=== PATIENT | female | born 1945 | race Caucasian/White ===

== ENCOUNTER → 2017-04-13 | Outpatient (CLI) | payer MEDICARE ==
--- NOTE | 2017-04-13 12:28 | REP ---
Bilateral carotid artery duplex ultrasound: Peak flow velocity analysis: RIGHT LEFT ICA. Peak flow velocity cm/sec 50 36 ICA Diastolic flow velocity cm/sec 15 12 ICA/CCA Ratio 0.50 0.68 There is shallow atheromatous plaque in the common carotid arteries extending into the bulbs and into the internal carotid arteries and external carotid arteries bilaterally. The plaque becomes focally and slightly thicker at the origins of the right and left internal carotid arteries bilaterally. However, the peak flow velocities are normal bilaterally. The findings indicate less than 50% narrowing bilaterally. There is no significant stenosis on the right or the left. There is antegrade flow in the left vertebral artery. The right vertebral artery could not be visualized. Impression: Less than 50% narrowing bilaterally. There is no significant stenosis on the right on the left. Antegrade flow in the left vertebral artery. The right vertebral artery could not be visualized. Signed by Varinder Hinkle MD 04/13/2017 12:20 P
--- NOTE | 2017-04-13 13:38 | REP ---
Thyroid sonography: History: Dizziness. Enlarged lymph nodes. Findings: Scanning through the palpable area in the left submandibular region demonstrates a normal size lymph node measuring 0.5 x 0.3 x 0.5 cm just above the submandibular gland. It has an echogenic fatty hilar architecture and a benign appearance. Submandibular gland appears homogeneous. Impression: No significant finding. Signed by Alfred Dow MD 04/13/2017 04:33 P
== END ==
LOC: M RAD 11:04
PROVIDERS: ATTEND Physician Assistant
DX: R42 Dizziness and giddiness (principal); R59.0 Localized enlarged lymph nodes

== ENCOUNTER → 2017-05-13 | Outpatient (REF) | payer MEDICARE ==
[2017-05-13 20:08] LABS: CALCIUM LEVEL 9.1 MG/DL (8.8-10.2); CREATININE FOR GFR 1.1 MG/DL (0.55-1.02); POTASSIUM SERUM 4.5 MEQ/L (3.5-5.1)
== END ==
LOC: M LAB REF 17:59
PROVIDERS: ATTEND Nurse Practitioner Family
DX: I11.0 Hypertensive heart disease with heart failure (principal)
CPT/HCPCS: 80048; G0463

== ENCOUNTER → 2017-05-24 | Outpatient (CLI) | payer MEDICARE ==
--- NOTE | 2017-05-24 14:22 | REP ---
MR BRAIN WITHOUT AND WITH CONTRAST: HISTORY: Tinnitus. CONTRAST: ProHance 7 mL. Areas of increased signal intensity on T2-weighted images are present in the periventricular and subcortical white matter. This represents small vessel ischemic disease. There is no intraparenchymal hemorrhage, infarct, mass, or midline shift. There is no abnormal enhancement. The ventricular system is normal in appearance. The cortical sulci and subarachnoid space in the posterior fossa are dilated, consistent with minimal volume loss. There is no cerebellopontine angle mass. The inner ear structures are normal in appearance. Minimal mucosal thickening is present in the mastoid air cells. The sinuses are clear. IMPRESSION: 1. Small vessel ischemic disease. 2. Minimal volume loss. Signed by Stephan Johnson MD 05/24/2017 02:24 P
== END ==
LOC: M RAD 12:17
PROVIDERS: ATTEND Physician Assistant
DX: M54.2 Cervicalgia (principal); R42 Dizziness and giddiness; H93.13 Tinnitus, bilateral; H92.02 Otalgia, left ear
CPT/HCPCS: 70553; A9576

== ENCOUNTER → 2017-11-29 | Outpatient (REF) | payer MEDICARE ==
[2017-11-29 18:30] LABS: BASO % 0.6 % (0.0-1.0); EOS # 0.1 10^3/uL (0.0-0.50); EOS % 2.9 % (0.0-3.0); HEMATOCRIT 41.1 % (36.0-47.0); HEMOGLOBIN 13.6 g/dl (12.0-16.0); IMMATURE GRANULOCYTE % 0.4 % (0-3.0); MEAN CORPUSCULAR HEMOGLOBIN 31.3 pg (27.0-33.0); MEAN CORPUSCULAR HGB CONC 33.1 g/dl (32.0-36.5); MEAN CORPUSCULAR VOLUME 94.7 fl (80.0-96.0); MONO # 0.6 10^3/uL (0.0-0.8); MONO % 12.6 % (0.0-5.0); NEUTROPHILS % 62.5 % (36.0-66.0); PLATELET COUNT, AUTOMATED 123 10^3/uL (150-450); RED BLOOD COUNT 4.34 10^6/uL (4.00-5.40); WHITE BLOOD COUNT 4.8 10^3/uL (4.0-10.0)
[2017-11-29 19:14] LABS: ALBUMIN 3.7 GM/DL (3.2-5.2); ALBUMIN/GLOBULIN RATIO 1.37 (1.00-1.93); ALKALINE PHOSPHATASE 81 U/L (45-117); ALT/SGPT 28 U/L (12-78); ANION GAP 6 MEQ/L (8-16); AST/SGOT 20 U/L (7-37); BILIRUBIN,TOTAL 0.4 MG/DL (0.2-1.0); BLOOD UREA NITROGEN 23 MG/DL (7-18); CALCIUM LEVEL 8.6 MG/DL (8.8-10.2); CARBON DIOXIDE LEVEL 28 MEQ/L (21-32); CHLORIDE LEVEL 108 MEQ/L (98-107); CHOLESTEROL LEVEL 150 MG/DL (<200); CHOLESTEROL RISK RATIO 3.125 (<5); CREATININE FOR GFR 1.02 MG/DL (0.55-1.30); FREE T4 1.41 NG/DL (0.76-1.46); GLOMERULAR FILTRATION RATE 56.6 (>39); GLUCOSE, FASTING 101 MG/DL (70-100); HDL CHOLESTEROL 48 MG/DL (>40); LDL CHOLESTEROL 78.8 MG/DL (<100); NON-HDL-C 102 MG/DL; POTASSIUM SERUM 4.6 MEQ/L (3.5-5.1); SODIUM LEVEL 142 MEQ/L (136-145); THYROID STIMULATING HORMONE 0.889 uIU/ML (0.358-3.740); TOTAL PROTEIN 6.4 GM/DL (6.4-8.2); TRIGLYCERIDES LEVEL 116 MG/DL (<150)
== END ==
LOC: M SFHCCAPE 09:26
DX: E78.5 Hyperlipidemia, unspecified (principal); E03.9 Hypothyroidism, unspecified
CPT/HCPCS: 84443

== ENCOUNTER → 2017-12-06 | Outpatient (REF) | payer MEDICARE ==
[2017-12-06 16:48] LABS: URIC ACID 6.8 MG/DL (2.6-6.0)
== END ==
LOC: M SFHCCAPE 16:15
DX: M25.542 Pain in joints of left hand (principal)
CPT/HCPCS: 84550

== ENCOUNTER → 2017-12-14 | Outpatient (CLI) | payer MEDICARE ==
[2017-12-14 11:57] LABS: COLLAGEN EPINEPHRINE 194 SECONDS (74-162)
[2017-12-14 12:19] LABS: COLLAGEN ADP 100 SECONDS (56-103)
== END ==
LOC: M LAB 11:14
DX: H02.423 Myogenic ptosis of bilateral eyelids (principal)
CPT/HCPCS: 36415

== ENCOUNTER → 2017-12-21 | Outpatient (REF) | payer MEDICARE ==
[2017-12-24 00:08] LABS: ANTINUCLEAR ANTIBODIES DIRECT Negative (Negative); Lyme Disease IgG/IgM Antibodie <0.91 ISR (0.00-0.90); Lyme Disease IgM Ab Quantitati <0.80 index (0.00-0.79)
[2017-12-24 00:08] LABS: CYCLIC CITRULLINATED PEPTIDE > 250 units (0-19)
== END ==
LOC: M SFHCCAPE 10:26
DX: Z01.818 Encounter for other preprocedural examination (principal); M79.642 Pain in left hand; M79.641 Pain in right hand; M25.649 Stiffness of unspecified hand, not elsewhere classified; E79.0 Hyperuricemia without signs of inflammatory arthritis and tophaceous disease
CPT/HCPCS: 86038

== ENCOUNTER → 2018-04-07 | Outpatient (REF) | payer MEDICARE ==
[2018-04-07 16:50] LABS: BASO % 0.5 % (0.0-1.0); EOS # 0.1 10^3/uL (0.0-0.50); EOS % 1.8 % (0.0-3.0); HEMATOCRIT 40.2 % (36.0-47.0); HEMOGLOBIN 13.5 g/dl (12.0-15.5); IMMATURE GRANULOCYTE % 0.3 % (0-3.0); LYMPH # 1.2 10^3/uL (1.5-4.5); LYMPH % 19.6 % (24.0-44.0); MEAN CORPUSCULAR HEMOGLOBIN 31.5 pg (27.0-33.0); MEAN CORPUSCULAR HGB CONC 33.6 g/dl (32.0-36.5); MEAN CORPUSCULAR VOLUME 93.7 fl (80.0-96.0); MONO # 0.6 10^3/uL (0.0-0.8); MONO % 9.6 % (0.0-5.0); NEUTROPHILS # 4.3 10^3/uL (1.8-7.7); NEUTROPHILS % 68.2 % (36.0-66.0); PLATELET COUNT, AUTOMATED 133 10^3/uL (150-450); RED BLOOD COUNT 4.29 10^6/uL (4.00-5.40); RED CELL DISTRIBUTION WIDTH 11.8 % (11.5-14.5); WHITE BLOOD COUNT 6.3 10^3/uL (4.0-10.0)
[2018-04-07 17:13] LABS: ESTIMATED AVERAGE GLUCOSE 123 MG/DL (60-110); HEMOGLOBIN A1c 5.9 %
[2018-04-07 17:32] LABS: ALBUMIN 3.5 GM/DL (3.2-5.2); ALBUMIN/GLOBULIN RATIO 1.21 (1.00-1.93); ALKALINE PHOSPHATASE 82 U/L (45-117); ALT/SGPT 20 U/L (12-78); ANION GAP 10 MEQ/L (8-16); AST/SGOT 14 U/L (7-37); BILIRUBIN,TOTAL 0.5 MG/DL (0.2-1.0); BLOOD UREA NITROGEN 21 MG/DL (7-18); C REACTIVE PROTEIN QUANTITATIV < 0.30 MG/DL (0.00-0.30); CALCIUM LEVEL 9.3 MG/DL (8.8-10.2); CARBON DIOXIDE LEVEL 23 MEQ/L (21-32); CHLORIDE LEVEL 107 MEQ/L (98-107); CREATININE FOR GFR 1.01 MG/DL (0.55-1.30); FREE T4 1.35 NG/DL (0.76-1.46); GLOMERULAR FILTRATION RATE 57.2 (>39); GLUCOSE, FASTING 102 MG/DL (70-100); POTASSIUM SERUM 4.9 MEQ/L (3.5-5.1); SODIUM LEVEL 140 MEQ/L (136-145); TOTAL PROTEIN 6.4 GM/DL (6.4-8.2); URIC ACID 6.5 MG/DL (2.6-6.0)
[2018-04-07 21:42] LABS: ERYTHROCYTE SEDIMENTATION RATE 7 mm/hr (0-30)
== END ==
LOC: M SFHCCAPE 10:00
DX: D69.6 Thrombocytopenia, unspecified (principal); E03.9 Hypothyroidism, unspecified; R73.01 Impaired fasting glucose; M25.542 Pain in joints of left hand; M05.742 Rheumatoid arthritis with rheumatoid factor of left hand without organ or systems involvement
CPT/HCPCS: 84443

== ENCOUNTER → 2018-05-19 | Outpatient (CLI) | payer MEDICARE | LOC: M LRY 09:10 | DX: M05.79 Rheumatoid arthritis with rheumatoid factor of multiple sites without organ or systems involvement (principal); M25.762 Osteophyte, left knee; M17.0 Bilateral primary osteoarthritis of knee; M25.742 Osteophyte, left hand; M25.741 Osteophyte, right hand; M19.031 Primary osteoarthritis, right wrist; M19.032 Primary osteoarthritis, left wrist; M19.041 Primary osteoarthritis, right hand; M19.042 Primary osteoarthritis, left hand; Z29.8 Encounter for other specified prophylactic measures; Z79.899 Other long term (current) drug therapy | CPT/HCPCS: 73110; 80053 ==

== ENCOUNTER → 2018-05-19 | Outpatient (REF) | payer MEDICARE ==
[2018-05-19 11:38] LABS: BASO % 0.4 % (0.0-1.0); EOS # 0.1 10^3/uL (0.0-0.50); EOS % 1.4 % (0.0-3.0); HEMATOCRIT 41.6 % (36.0-47.0); HEMOGLOBIN 13.8 g/dl (12.0-15.5); IMMATURE GRANULOCYTE % 0.1 % (0-3.0); LYMPH # 1.3 10^3/uL (1.5-4.5); MEAN CORPUSCULAR HEMOGLOBIN 31.1 pg (27.0-33.0); MEAN CORPUSCULAR HGB CONC 33.2 g/dl (32.0-36.5); MEAN CORPUSCULAR VOLUME 93.7 fl (80.0-96.0); MONO # 0.6 10^3/uL (0.0-0.8); MONO % 8.5 % (0.0-5.0); NEUTROPHILS % 71.6 % (36.0-66.0); PLATELET COUNT, AUTOMATED 123 10^3/uL (150-450); RED BLOOD COUNT 4.44 10^6/uL (4.00-5.40); RED CELL DISTRIBUTION WIDTH 12.4 % (11.5-14.5); WHITE BLOOD COUNT 6.9 10^3/uL (4.0-10.0)
[2018-05-19 12:16] LABS: ALBUMIN 3.8 GM/DL (3.2-5.2); ALBUMIN/GLOBULIN RATIO 1.27 (1.00-1.93); ALKALINE PHOSPHATASE 86 U/L (45-117); ALT/SGPT 19 U/L (12-78); ANION GAP 4 MEQ/L (8-16); AST/SGOT 12 U/L (7-37); BILIRUBIN,TOTAL 0.4 MG/DL (0.2-1.0); BLOOD UREA NITROGEN 22 MG/DL (7-18); C REACTIVE PROTEIN QUANTITATIV < 0.30 MG/DL (0.00-0.30); CALCIUM LEVEL 8.9 MG/DL (8.8-10.2); CARBON DIOXIDE LEVEL 31 MEQ/L (21-32); CHLORIDE LEVEL 110 MEQ/L (98-107); GLOMERULAR FILTRATION RATE 57.9 (>39); GLUCOSE, FASTING 86 MG/DL (70-100); SODIUM LEVEL 145 MEQ/L (136-145); TOTAL PROTEIN 6.8 GM/DL (6.4-8.2)
[2018-05-19 12:22] LABS: ERYTHROCYTE SEDIMENTATION RATE 9 mm/hr (0-30)
[2018-05-19 12:30] LABS: TOTAL 25(OH) VITAMIN D 18.7 NG/ML (30.0-100.0)
[2018-05-20 09:32] LABS: HEPATITIS B SURFACE ANTIBODY NEGATIVE (POSITIVE)
[2018-05-20 09:38] LABS: HEPATITIS B SURFACE ANTIGEN NEGATIVE (NEGATIVE)
[2018-05-20 10:08] LABS: HEPATITIS C VIRUS ABY INDEX 0.1 INDEX (<0.8)
[2018-05-21 00:07] LABS: G6PD2 4.55 x10E6/uL (3.77-5.28); G6PD3 285 (146-376); HEPATITIS B CORE ANTIBODY IGG Negative (Negative)
== END ==
LOC: M SFHCLERA 08:46
DX: M05.79 Rheumatoid arthritis with rheumatoid factor of multiple sites without organ or systems involvement (principal); Z29.8 Encounter for other specified prophylactic measures; M15.8 Other polyosteoarthritis; Z79.899 Other long term (current) drug therapy
CPT/HCPCS: 80053

== ENCOUNTER → 2018-05-31 | Outpatient (REF) | payer MEDICARE | LOC: M SFHCCAPE 17:10 | DX: K13.79 Other lesions of oral mucosa (principal) | CPT/HCPCS: 87255 ==

== ENCOUNTER → 2018-06-08 | Outpatient (CLI) | payer MEDICARE | LOC: M WHC 13:57 | DX: Z29.8 Encounter for other specified prophylactic measures (principal); Z78.0 Asymptomatic menopausal state | CPT/HCPCS: 77080 ==

== ENCOUNTER → 2018-06-09 | Outpatient (REF) | payer MEDICARE ==
[2018-06-09 17:49] LABS: ALBUMIN 3.8 GM/DL (3.2-5.2); ALBUMIN/GLOBULIN RATIO 1.41 (1.00-1.93); ALKALINE PHOSPHATASE 80 U/L (45-117); ALT/SGPT 20 U/L (12-78); ANION GAP 7 MEQ/L (8-16); AST/SGOT 15 U/L (7-37); BILIRUBIN,TOTAL 0.4 MG/DL (0.2-1.0); BLOOD UREA NITROGEN 19 MG/DL (7-18); C REACTIVE PROTEIN QUANTITATIV < 0.30 MG/DL (0.00-0.30); CALCIUM LEVEL 9.1 MG/DL (8.8-10.2); CARBON DIOXIDE LEVEL 27 MEQ/L (21-32); CHLORIDE LEVEL 108 MEQ/L (98-107); CREATININE FOR GFR 0.97 MG/DL (0.55-1.30); GLOMERULAR FILTRATION RATE 59.9 (>39); GLUCOSE, FASTING 88 MG/DL (70-100); POTASSIUM SERUM 4.9 MEQ/L (3.5-5.1); SODIUM LEVEL 142 MEQ/L (136-145); TOTAL PROTEIN 6.5 GM/DL (6.4-8.2)
[2018-06-09 19:32] LABS: BASO % 0.8 % (0.0-1.0); EOS # 0.1 10^3/uL (0.0-0.50); EOS % 1.5 % (0.0-3.0); HEMATOCRIT 39.7 % (36.0-47.0); HEMOGLOBIN 12.9 g/dl (12.0-15.5); IMMATURE GRANULOCYTE % 0.4 % (0-3.0); LYMPH # 1.1 10^3/uL (1.5-4.5); LYMPH % 21.8 % (24.0-44.0); MEAN CORPUSCULAR HEMOGLOBIN 30.9 pg (27.0-33.0); MEAN CORPUSCULAR HGB CONC 32.5 g/dl (32.0-36.5); MEAN CORPUSCULAR VOLUME 95.2 fl (80.0-96.0); MONO # 0.5 10^3/uL (0.0-0.8); MONO % 9.6 % (0.0-5.0); NEUTROPHILS # 3.4 10^3/uL (1.8-7.7); NEUTROPHILS % 65.9 % (36.0-66.0); PLATELET COUNT, AUTOMATED 131 10^3/uL (150-450); RED BLOOD COUNT 4.17 10^6/uL (4.00-5.40); WHITE BLOOD COUNT 5.2 10^3/uL (4.0-10.0)
[2018-06-09 20:12] LABS: ERYTHROCYTE SEDIMENTATION RATE 9 mm/hr (0-30)
== END ==
LOC: M SFHCCAPE 11:26
DX: M05.79 Rheumatoid arthritis with rheumatoid factor of multiple sites without organ or systems involvement (principal)
CPT/HCPCS: 80053

== ENCOUNTER → 2018-07-28 | Outpatient (REF) | payer MEDICARE ==
[2018-07-28 19:39] LABS: BASO % 0.7 % (0.0-1.0); EOS # 0.1 10^3/uL (0.0-0.50); EOS % 1.8 % (0.0-3.0); HEMATOCRIT 42.5 % (36.0-47.0); HEMOGLOBIN 13.4 g/dl (12.0-15.5); IMMATURE GRANULOCYTE % 0.3 % (0-3.0); LYMPH # 1.2 10^3/uL (1.5-4.5); LYMPH % 20.8 % (24.0-44.0); MEAN CORPUSCULAR HEMOGLOBIN 31.5 pg (27.0-33.0); MEAN CORPUSCULAR HGB CONC 31.5 g/dl (32.0-36.5); MEAN CORPUSCULAR VOLUME 99.8 fl (80.0-96.0); MONO # 0.5 10^3/uL (0.0-0.8); MONO % 8.9 % (0.0-5.0); NEUTROPHILS % 67.5 % (36.0-66.0); PLATELET COUNT, AUTOMATED 134 10^3/uL (150-450); RED BLOOD COUNT 4.26 10^6/uL (4.00-5.40); RED CELL DISTRIBUTION WIDTH 13.9 % (11.5-14.5)
[2018-07-28 19:50] LABS: ALBUMIN 3.9 GM/DL (3.2-5.2); ALKALINE PHOSPHATASE 82 U/L (45-117); ALT/SGPT 22 U/L (12-78); ANION GAP 4 MEQ/L (8-16); AST/SGOT 16 U/L (7-37); BILIRUBIN,TOTAL 0.5 MG/DL (0.2-1.0); BLOOD UREA NITROGEN 16 MG/DL (7-18); CALCIUM LEVEL 9.1 MG/DL (8.8-10.2); CARBON DIOXIDE LEVEL 30 MEQ/L (21-32); CHLORIDE LEVEL 106 MEQ/L (98-107); CREATININE FOR GFR 1.04 MG/DL (0.55-1.30); GLOMERULAR FILTRATION RATE 55.1 (>39); GLUCOSE, FASTING 86 MG/DL (70-100); SODIUM LEVEL 140 MEQ/L (136-145); TOTAL PROTEIN 6.5 GM/DL (6.4-8.2)
[2018-07-28 20:07] LABS: ERYTHROCYTE SEDIMENTATION RATE 7 mm/hr (0-30)
== END ==
LOC: M SFHCCAPE 10:42
DX: M05.79 Rheumatoid arthritis with rheumatoid factor of multiple sites without organ or systems involvement (principal)
CPT/HCPCS: 80053

== ENCOUNTER → 2018-09-08 | Outpatient (CLI) | payer MEDICARE | LOC: M CLY 14:16 | DX: M25.762 Osteophyte, left knee (principal); M79.89 Other specified soft tissue disorders; M25.775 Osteophyte, left foot; M79.605 Pain in left leg; W19.XXXA Unspecified fall, initial encounter; Y92.9 Unspecified place or not applicable | CPT/HCPCS: 73564 ==

== ENCOUNTER → 2018-09-29 | Outpatient (REF) | payer MEDICARE ==
[2018-09-29 17:40] LABS: BASO # 0.1 10^3/uL (0.0-0.2); EOS # 0.2 10^3/uL (0.0-0.50); EOS % 3.8 % (0.0-3.0); HEMATOCRIT 43.5 % (36.0-47.0); HEMOGLOBIN 14.2 g/dl (12.0-15.5); LYMPH # 1.1 10^3/uL (1.5-4.5); LYMPH % 19.4 % (24.0-44.0); MEAN CORPUSCULAR HEMOGLOBIN 31.9 pg (27.0-33.0); MEAN CORPUSCULAR HGB CONC 32.6 g/dl (32.0-36.5); MEAN CORPUSCULAR VOLUME 97.8 fl (80.0-96.0); MONO # 0.6 10^3/uL (0.0-0.8); MONO % 10.9 % (0.0-5.0); NEUTROPHILS # 3.7 10^3/uL (1.8-7.7); NEUTROPHILS % 64.4 % (36.0-66.0); RED BLOOD COUNT 4.45 10^6/uL (4.00-5.40); WHITE BLOOD COUNT 5.8 10^3/uL (4.0-10.0)
[2018-09-29 20:30] LABS: ERYTHROCYTE SEDIMENTATION RATE 9 mm/hr (0-30)
[2018-09-29 21:36] LABS: ALBUMIN 3.7 GM/DL (3.2-5.2); BILIRUBIN,TOTAL 0.5 MG/DL (0.2-1.0); C REACTIVE PROTEIN QUANTITATIV 0.43 MG/DL (0.00-0.30); CALCIUM LEVEL 8.8 MG/DL (8.8-10.2); CHOLESTEROL RISK RATIO 3.615 (<5); CREATININE FOR GFR 1.28 MG/DL (0.55-1.30); GLOMERULAR FILTRATION RATE 43.4 (>39); POTASSIUM SERUM 4.2 MEQ/L (3.5-5.1); THYROID STIMULATING HORMONE 2.04 uIU/ML (0.358-3.740); TOTAL 25(OH) VITAMIN D 72.7 NG/ML (30.0-100.0); TOTAL PROTEIN 6.6 GM/DL (6.4-8.2)
== END ==
LOC: M SFHCCAPE 09:45
PROVIDERS: ATTEND Internal Medicine Rheumatology
DX: M05.79 Rheumatoid arthritis with rheumatoid factor of multiple sites without organ or systems involvement (principal); E55.9 Vitamin D deficiency, unspecified; I10 Essential (primary) hypertension

== ENCOUNTER → 2018-10-24 | Outpatient (REF) | payer MEDICARE ==
[2018-10-24 19:01] LABS: BLOOD UREA NITROGEN 25 MG/DL (7-18); C REACTIVE PROTEIN QUANTITATIV < 0.30 MG/DL (0.00-0.30); CALCIUM LEVEL 8.6 MG/DL (8.8-10.2); CARBON DIOXIDE LEVEL 29 MEQ/L (21-32); CHLORIDE LEVEL 106 MEQ/L (98-107); CREATININE FOR GFR 1.16 MG/DL (0.55-1.30); GLOMERULAR FILTRATION RATE 48.6 (>39); GLUCOSE, FASTING 81 MG/DL (70-100); POTASSIUM SERUM 3.9 MEQ/L (3.5-5.1); SODIUM LEVEL 141 MEQ/L (136-145)
== END ==
LOC: M SFHCPLAZ 15:16
PROVIDERS: ATTEND Internal Medicine Rheumatology
DX: M05.79 Rheumatoid arthritis with rheumatoid factor of multiple sites without organ or systems involvement (principal)
CPT/HCPCS: 36415; 80048; 85049; 86140; G0463

== ENCOUNTER → 2018-11-01 | Outpatient (CLI) | payer MEDICARE | LOC: M LAB 09:47 | PROVIDERS: ATTEND Internal Medicine Rheumatology | DX: D69.6 Thrombocytopenia, unspecified (principal) ==

== ENCOUNTER → 2019-01-19 | Outpatient (REF) | payer MEDICARE ==
[2019-01-19 18:47] LABS: PLTBLUE- EDTA FREE CALC 117 K/mm3 (172-450)
[2019-01-19 19:23] LABS: ALBUMIN 3.9 GM/DL (3.2-5.2); ALT/SGPT 41 U/L (12-78); BILIRUBIN,TOTAL 0.5 MG/DL (0.2-1.0); BLOOD UREA NITROGEN 18 MG/DL (7-18); C REACTIVE PROTEIN QUANTITATIV < 0.30 MG/DL (0.00-0.30); CARBON DIOXIDE LEVEL 32 MEQ/L (21-32); CHLORIDE LEVEL 107 MEQ/L (98-107); CREATININE FOR GFR 1.17 MG/DL (0.55-1.30); GLOMERULAR FILTRATION RATE 48.1 (>39); GLUCOSE, FASTING 85 MG/DL (70-100); POTASSIUM SERUM 4.6 MEQ/L (3.5-5.1); SODIUM LEVEL 142 MEQ/L (136-145); TOTAL PROTEIN 6.9 GM/DL (6.4-8.2)
[2019-01-19 19:54] LABS: PLTBLUE- EDTA FREE MACHINE 106 10^3/uL (172-450)
[2019-01-19 20:04] LABS: ERYTHROCYTE SEDIMENTATION RATE 6 mm/hr (0-30)
== END ==
LOC: M SFHCPLAZ 14:22
PROVIDERS: ATTEND Internal Medicine Rheumatology
DX: M05.79 Rheumatoid arthritis with rheumatoid factor of multiple sites without organ or systems involvement (principal)
CPT/HCPCS: 36415; 80053; 85049; 85652; 86140; G0463

== ENCOUNTER → 2019-03-29 | Outpatient (CLI) | payer MEDICARE ==
[2019-03-29 14:01] LABS: PLTBLUE- EDTA FREE CALC 92 K/mm3 (172-450)
[2019-03-29 14:15] LABS: ALBUMIN 3.6 GM/DL (3.2-5.2); BILIRUBIN,TOTAL 0.5 MG/DL (0.2-1.0); C REACTIVE PROTEIN QUANTITATIV 0.3 MG/DL (0.00-0.30); CALCIUM LEVEL 9.5 MG/DL (8.8-10.2); CREATININE FOR GFR 1.16 MG/DL (0.55-1.30); GLOMERULAR FILTRATION RATE 48.6 (>39); POTASSIUM SERUM 4.5 MEQ/L (3.5-5.1); TOTAL PROTEIN 6.5 GM/DL (6.4-8.2)
[2019-03-29 14:23] LABS: ERYTHROCYTE SEDIMENTATION RATE 8 mm/hr (0-30)
[2019-03-29 14:24] LABS: BASO % 0.4 % (0.0-1.0); EOS # 0.1 10^3/uL (0.0-0.50); EOS % 1.7 % (0.0-3.0); HEMATOCRIT 36.1 % (36.0-47.0); HEMOGLOBIN 12.2 g/dl (12.0-15.5); LYMPH # 1.1 10^3/uL (1.5-4.5); LYMPH % 23.5 % (24.0-44.0); MEAN CORPUSCULAR HEMOGLOBIN 33.6 pg (27.0-33.0); MEAN CORPUSCULAR HGB CONC 33.8 g/dl (32.0-36.5); MEAN CORPUSCULAR VOLUME 99.4 fl (80.0-96.0); MONO # 0.5 10^3/uL (0.0-0.8); MONO % 10.7 % (0.0-5.0); NEUTROPHILS % 63.5 % (36.0-66.0); RED BLOOD COUNT 3.63 10^6/uL (4.00-5.40); WHITE BLOOD COUNT 4.8 10^3/uL (4.0-10.0)
[2019-03-29 14:24] LABS: PLTBLUE- EDTA FREE MACHINE 84 10^3/uL (172-450)
[2019-03-29 14:25] LABS: PLATELET COUNT, AUTOMATED 88 10^3/uL (150-450)
== END ==
LOC: M LAB 12:52
PROVIDERS: ATTEND Internal Medicine Rheumatology
DX: M05.9 Rheumatoid arthritis with rheumatoid factor, unspecified (principal)

== ENCOUNTER → 2019-05-30 | Outpatient (REF) | payer MEDICARE ==
[2019-05-30 17:03] LABS: ALBUMIN 3.7 GM/DL (3.2-5.2); ALT/SGPT 31 U/L (12-78); BILIRUBIN,TOTAL 0.4 MG/DL (0.2-1.0); BLOOD UREA NITROGEN 19 MG/DL (7-18); C REACTIVE PROTEIN QUANTITATIV < 0.30 MG/DL (0.00-0.30); CALCIUM LEVEL 9.5 MG/DL (8.8-10.2); CARBON DIOXIDE LEVEL 33 MEQ/L (21-32); CHLORIDE LEVEL 107 MEQ/L (98-107); CREATININE FOR GFR 0.93 MG/DL (0.55-1.30); GLOMERULAR FILTRATION RATE > 60.0 (>39); GLUCOSE, FASTING 100 MG/DL (70-100); POTASSIUM SERUM 4.6 MEQ/L (3.5-5.1); SODIUM LEVEL 140 MEQ/L (136-145); TOTAL PROTEIN 6.4 GM/DL (6.4-8.2)
[2019-05-30 17:14] LABS: BASO % 0.6 % (0.0-1.0); EOS # 0.1 10^3/uL (0.0-0.5); EOS % 2.7 % (0.0-3.0); HEMATOCRIT 42.4 % (36.0-47.0); HEMOGLOBIN 14.2 g/dl (12.0-15.5); LYMPH # 1.5 10^3/uL (1.5-5.0); LYMPH % 29.2 % (24.0-44.0); MEAN CORPUSCULAR HEMOGLOBIN 32.7 pg (27.0-33.0); MEAN CORPUSCULAR HGB CONC 33.5 g/dl (32.0-36.5); MEAN CORPUSCULAR VOLUME 97.7 fl (80.0-96.0); MONO # 0.7 10^3/uL (0.0-0.8); MONO % 13.7 % (0.0-5.0); NEUTROPHILS # 2.8 10^3/uL (1.5-8.5); NEUTROPHILS % 53.6 % (36.0-66.0); PLATELET COUNT, AUTOMATED 119 10^3/uL (150-450); RED BLOOD COUNT 4.34 10^6/uL (4.00-5.40); WHITE BLOOD COUNT 5.2 10^3/uL (4.0-10.0)
[2019-05-30 17:32] LABS: PLTBLUE- EDTA FREE CALC 86 K/mm3 (172-450)
[2019-05-30 18:53] LABS: PLTBLUE- EDTA FREE MACHINE 78 10^3/uL (172-450)
[2019-05-30 19:36] LABS: ERYTHROCYTE SEDIMENTATION RATE 7 mm/hr (0-30)
== END ==
LOC: M SFHCPLAZ 13:53
PROVIDERS: ATTEND Internal Medicine Rheumatology
DX: M05.79 Rheumatoid arthritis with rheumatoid factor of multiple sites without organ or systems involvement (principal)

== ENCOUNTER → 2019-06-29 | Outpatient (REF) | payer MEDICARE | LOC: M SFHCPLAZ 11:32 | PROVIDERS: ATTEND Internal Medicine Rheumatology | DX: M05.79 Rheumatoid arthritis with rheumatoid factor of multiple sites without organ or systems involvement (principal) ==

== ENCOUNTER → 2019-07-19 | Outpatient (REF) | payer MEDICARE ==
[~2019-07-19] MED LIST: ALLE10TA PO; ASPI81TA21 PO; CALC-333 PO; HUMI40KI SC; LEVO150T7 PO; METH2.5T48 PO; METO1TAB7 PO; NYST50SS PO; SIMV20TA2 PO; SPIR-10 PO; [UNRECOGNIZED DRUG - OTHER] OP
[2019-07-19 16:28] LABS: BASO # 0.1 10^3/uL (0.0-0.2); BASO % 0.7 % (0.0-1.0); EOS # 0.1 10^3/uL (0.0-0.5); EOS % 2.1 % (0.0-3.0); HEMATOCRIT 45.3 % (36.0-47.0); HEMOGLOBIN 14.4 g/dl (12.0-15.5); LYMPH # 1.9 10^3/uL (1.5-5.0); MEAN CORPUSCULAR HEMOGLOBIN 31.1 pg (27.0-33.0); MEAN CORPUSCULAR HGB CONC 31.8 g/dl (32.0-36.5); MEAN CORPUSCULAR VOLUME 97.8 fl (80.0-96.0); MONO # 0.8 10^3/uL (0.0-0.8); MONO % 11.2 % (0.0-5.0); NEUTROPHILS # 3.9 10^3/uL (1.5-8.5); NEUTROPHILS % 57.7 % (36.0-66.0); PLATELET COUNT, AUTOMATED 114 10^3/uL (150-450); RED BLOOD COUNT 4.63 10^6/uL (4.00-5.40); WHITE BLOOD COUNT 6.8 10^3/uL (4.0-10.0)
[2019-07-19 16:40] LABS: ALBUMIN 3.7 GM/DL (3.2-5.2); BILIRUBIN,TOTAL 0.6 MG/DL (0.2-1.0); CALCIUM LEVEL 9.6 MG/DL (8.8-10.2); CHOLESTEROL RISK RATIO 3.065 (<5); CREATININE FOR GFR 1.15 MG/DL (0.55-1.30); POTASSIUM SERUM 4.3 MEQ/L (3.5-5.1); THYROID STIMULATING HORMONE 1.03 uIU/ML (0.358-3.740); TOTAL PROTEIN 7.1 GM/DL (6.4-8.2)
== END ==
LOC: M SFHCCAPE 09:44
PROVIDERS: ATTEND Physician Assistant
DX: R10.32 Left lower quadrant pain (principal); I10 Essential (primary) hypertension

== ENCOUNTER → 2019-07-21 | Outpatient (CLI) | payer MEDICARE ==
[~2019-07-21] MED LIST changes: +GASTROGRAFIN SOLUTION 30ML (Q9963) As Ordered ONE; +ISOVUE-370 76% 100ML VIAL (Q9967) As Ordered ONE
--- NOTE | 2019-07-24 08:37 | REP ---
Clinical: Left lower quadrant pain. Technique: Axial contrast enhanced images from the lung bases to the pubic symphysis using oral and intravenous contrast material. Findings: Lung bases demonstrate chronic COPD and minimal scattered fibrosis/scarring. Visualized portions of the heart and pericardium are grossly normal; evidence for aortic valve repair. Liver, spleen, pancreas, bilateral adrenal glands and kidneys are relatively normal. Cholelithiasis suggested. Evaluation of the enteric system demonstrates sigmoid diverticulosis without acute diverticulitis. There is no evidence for bowel obstruction or acute inflammatory process. Normal terminal ileum, cecum and appendix identified in the right lower quadrant. Pelvis demonstrates normal bladder and age-appropriate uterus/adnexa with partially calcified myomatous changes noted. No ascites. No free air. No adenopathy. Atherosclerotic changes to the aorta and vasculature noted without aneurysm or dissection. Musculoskeletal structures demonstrate osteopenia and degenerative changes. Impression: 1. Sigmoid diverticulosis without acute diverticulitis. 2. Cholelithiasis. 3. Myomatous changes to the uterus. 4. No obvious acute abdominopelvic pathology appreciated. Electronically Signed by Betito Adames MD 07/24/2019 08:28 A
== END ==
LOC: M RAD 15:58
PROVIDERS: ATTEND Physician Assistant
DX: R10.32 Left lower quadrant pain (principal); K80.20 Calculus of gallbladder without cholecystitis without obstruction; K57.30 Diverticulosis of large intestine without perforation or abscess without bleeding
CPT/HCPCS: 74177; Q9963; Q9967

== ENCOUNTER 2019-11-07 09:02 | Emergency (ER) | payer MEDICARE ==
[~2019-11-07] VITALS: Ht 177.8 cm; Wt 80.5 kg
[~2019-11-07 09:02] MED LIST changes: -GASTROGRAFIN SOLUTION 30ML (Q9963) As Ordered ONE; -ISOVUE-370 76% 100ML VIAL (Q9967) As Ordered ONE; -SIMV20TA2 PO; +SIMV20TA22 PO
[2019-11-07] MEDS ORDERED: METO50TA7 PO (09:11)
--- NOTE | 2019-11-07 09:44 | REP ---
Clinical: Trauma. Technique: Complete facial bone series (six total views). Findings: Osseous structures are intact and there is no evidence for acute fracture dislocation. Paranasal sinuses are well aerated and clear without fluid level to suggest occult injury. No subcutaneous emphysema or foreign body identified. Impression: Normal examination. Electronically Signed by Betito Adames MD 11/07/2019 09:36 A
[2019-11-07 10:45] VITALS: BP 111/63
[2019-11-10] MEDS ORDERED: TUMS500C PO (12:42)
[2019-11-10] MEDS ORDERED: THERSOL2 OU (12:42)
[2019-11-10] MEDS ORDERED: PEPC1TAB5 PO (12:42)
[2019-11-10] MEDS ORDERED: LEVO100T5 PO (12:42)
== END 2019-11-07 10:55 | disposition home or self-care (01) ==
LOC: M ED 09:02
DX: S00.83XA Contusion of other part of head, initial encounter (principal); W22.09XA Striking against other stationary object, initial encounter; Y92.000 Kitchen of unspecified non-institutional (private) residence as the place of occurrence of the external cause; Y93.E5 Activity, floor mopping and cleaning; E78.5 Hyperlipidemia, unspecified; M06.9 Rheumatoid arthritis, unspecified; Z79.82 Long term (current) use of aspirin; Z79.899 Other long term (current) drug therapy

== ENCOUNTER → 2020-02-07 | Outpatient (REF) | payer MEDICARE ==
[~2020-02-07] MED LIST changes: +LEVO100T5 PO; +METO50TA7 PO; +PEPC1TAB5 PO; +THERSOL2 OU; +TUMS500C PO
[2020-02-07 16:26] LABS: BASO # 0.1 10^3/uL (0.0-0.2); BASO % 0.9 % (0.0-1.0); EOS # 0.1 10^3/uL (0.0-0.5); EOS % 1.2 % (0.0-3.0); HEMATOCRIT 44.9 % (36.0-47.0); HEMOGLOBIN 14.8 g/dl (12.0-15.5); LYMPH # 1.4 10^3/uL (1.5-5.0); LYMPH % 23.5 % (24.0-44.0); MEAN CORPUSCULAR HEMOGLOBIN 31.8 pg (27.0-33.0); MEAN CORPUSCULAR VOLUME 96.6 fl (80.0-96.0); MONO # 0.6 10^3/uL (0.0-0.8); MONO % 10.2 % (0.0-5.0); NEUTROPHILS # 3.8 10^3/uL (1.5-8.5); RED BLOOD COUNT 4.65 10^6/uL (4.00-5.40); WHITE BLOOD COUNT 5.9 10^3/uL (4.0-10.0)
[2020-02-07 16:54] LABS: ALBUMIN 3.5 GM/DL (3.2-5.2); BILIRUBIN,TOTAL 0.6 MG/DL (0.2-1.0); CALCIUM LEVEL 9.2 MG/DL (8.8-10.2); CHOLESTEROL RISK RATIO 3.363 (<5); CREATININE FOR GFR 1.07 MG/DL (0.55-1.30); FREE T4 1.39 NG/DL (0.76-1.46); GLOMERULAR FILTRATION RATE 53.2 (>39); POTASSIUM SERUM 4.6 MEQ/L (3.5-5.1); THYROID STIMULATING HORMONE 0.775 uIU/ML (0.358-3.740); TOTAL 25(OH) VITAMIN D 29.6 NG/ML (30.0-100.0)
[2020-02-07 16:57] LABS: PLATELET COUNT, AUTOMATED 98 10^3/uL (150-450)
== END ==
LOC: M SFHCCLAY 11:26
PROVIDERS: ATTEND Physician Assistant
DX: I10 Essential (primary) hypertension (principal); E55.9 Vitamin D deficiency, unspecified; E03.9 Hypothyroidism, unspecified
CPT/HCPCS: 80053; 80061; 82306; 84439; 84443; 85025; 85049; 85055; G0463

== ENCOUNTER → 2020-02-20 | Outpatient (CLI) | payer MEDICARE ==
[~2020-02-20] MED LIST changes: +ASPI81TA85 PO
== END ==
LOC: M LABSMTC 12:22
PROVIDERS: ATTEND Anesthesiology
DX: Z01.818 Encounter for other preprocedural examination (principal); Z11.59 Encounter for screening for other viral diseases
CPT/HCPCS: C9803; U0002

== ENCOUNTER 2020-02-22 12:03 | Day surgery (SDC) | payer MEDICARE ==
[~2020-02-22] VITALS: Ht 177.8 cm; Wt 78.9 kg
[~2020-02-22 12:03] MED LIST changes: +LIDOCAINE 2% 100MG/5ML SDV (FOR ANES.) As Ordered ONE; +NS 1,000 ML IV ONE; +propofoL 200 MG/20 ML VIAL As Ordered ONE
[2020-02-22] MEDS ORDERED: propofoL 200 MG/20 ML VIAL As Ordered ONE (13:25)
--- NOTE | 2020-02-22 13:39 | ROOR ---
Patient Name: Stacie Isabel Procedure Date: 02/22/2020 1:10 PM Date of : 1945 Age: 74 Room: [facility] Gender: Female Note Status: Finalized Procedure: Colonoscopy Indications: Change in bowel habits, Chronic diarrhea Providers: Rell SHI MD Referring MD: KAITLIN Ellis pa-c Requesting Provider: Medicines: Monitored Anesthesia Care Complications: No immediate complications. Procedure: Pre-Anesthesia Assessment: - The heart rate, respiratory rate, oxygen saturations, blood pressure, adequacy of pulmonary ventilation, and response to care were monitored throughout the procedure. The Colonoscope was introduced through the anus and advanced to 10 cm into the ileum. The colonoscopy was performed without difficulty. The patient tolerated the procedure well. The quality of the bowel preparation was good. Findings: The perianal and digital rectal examinations were normal. The terminal ileum appeared normal. Two sessile polyps were found in the sigmoid colon. The polyps were 4 to 5 mm in size. These polyps were removed with a cold snare. Resection and retrieval were complete. Multiple medium-mouthed diverticula were found in the sigmoid colon. Internal hemorrhoids were found during retroflexion. The hemorrhoids were moderate. The exam was otherwise without abnormality on direct and retroflexion views. Biopsies for histology were taken with a cold forceps from the entire colon for evaluation of microscopic colitis. Impression: - The examined portion of the ileum was normal. - Two 4 to 5 mm polyps in the sigmoid colon, removed with a cold snare. Resected and retrieved. - Diverticulosis in the sigmoid colon. - Internal hemorrhoids. - The examination of the colon was otherwise normal on direct and retroflexion views. - Biopsies were taken with a cold forceps from the entire colon for evaluation of microscopic colitis. Recommendation: - Use fiber, for example Citrucel, Fibercon, Konsyl or Metamucil. - Telephone endoscopist for pathology results in 2 weeks. - Lactose free diet. Rell Shi MD Rell SHI MD 02/22/2020 1:39:22 PM Electronically signed by Rell SHI MD Number of Addenda: 0 Note Initiated On: 02/22/2020 1:10 PM Estimated Blood Loss: Estimated blood loss: none.
[2020-02-22 14:28] VITALS: BP 131/74
== END 2020-02-22 14:30 | disposition home or self-care (01) ==
LOC: M OPP 12:03
PROVIDERS: ATTEND Internal Medicine Gastroenterology
DX: K63.5 Polyp of colon (principal); K64.8 Other hemorrhoids; R19.4 Change in bowel habit; K52.9 Noninfective gastroenteritis and colitis, unspecified; K57.30 Diverticulosis of large intestine without perforation or abscess without bleeding; E03.9 Hypothyroidism, unspecified; Z79.82 Long term (current) use of aspirin; Z79.899 Other long term (current) drug therapy; Z87.891 Personal history of nicotine dependence

== ENCOUNTER → 2020-05-27 | Outpatient (REF) | payer MEDICARE ==
[~2020-05-27] MED LIST changes: -ASPI81TA85 PO; +ASPI81TA86 PO; -LIDOCAINE 2% 100MG/5ML SDV (FOR ANES.) As Ordered ONE; -NS 1,000 ML IV ONE; -propofoL 200 MG/20 ML VIAL As Ordered ONE
== END ==
LOC: M SFHCCLAY 17:54
PROVIDERS: ATTEND Nurse Practitioner Family
DX: R19.03 Right lower quadrant abdominal swelling, mass and lump (principal)

== ENCOUNTER → 2020-06-10 | Outpatient (REF) | payer MEDICARE ==
[2020-06-10 16:53] LABS: BASO % 0.6 % (0.0-1.0); EOS # 0.1 10^3/uL (0.0-0.5); HEMATOCRIT 41.2 % (36.0-47.0); HEMOGLOBIN 13.4 g/dl (12.0-15.5); LYMPH # 1.6 10^3/uL (1.5-5.0); LYMPH % 29.9 % (24.0-44.0); MEAN CORPUSCULAR HEMOGLOBIN 31.7 pg (27.0-33.0); MEAN CORPUSCULAR HGB CONC 32.5 g/dl (32.0-36.5); MEAN CORPUSCULAR VOLUME 97.4 fl (80.0-96.0); MONO # 0.6 10^3/uL (0.0-0.8); MONO % 11.5 % (0.0-5.0); NEUTROPHILS % 55.8 % (36.0-66.0); PLATELET COUNT, AUTOMATED 102 10^3/uL (150-450); RED BLOOD COUNT 4.23 10^6/uL (4.00-5.40); WHITE BLOOD COUNT 5.4 10^3/uL (4.0-10.0)
[2020-06-10 16:54] LABS: ALBUMIN 3.4 GM/DL (3.2-5.2); BILIRUBIN,TOTAL 0.5 MG/DL (0.2-1.0); C REACTIVE PROTEIN QUANTITATIV 0.3 MG/DL (0.00-0.30); CREATININE FOR GFR 1.02 MG/DL (0.55-1.30); GLOMERULAR FILTRATION RATE 56.2 (>39); POTASSIUM SERUM 4.8 MEQ/L (3.5-5.1); TOTAL PROTEIN 6.7 GM/DL (6.4-8.2)
[2020-06-10 17:38] LABS: ERYTHROCYTE SEDIMENTATION RATE 9 mm/hr (0-30)
[2020-06-12 11:27] LABS: FREE T4 1.4 NG/DL (0.76-1.46); THYROID STIMULATING HORMONE 0.749 uIU/ML (0.358-3.740)
== END ==
LOC: M LAB REF 16:20
PROVIDERS: ATTEND Internal Medicine Rheumatology
DX: E03.9 Hypothyroidism, unspecified (principal); M05.79 Rheumatoid arthritis with rheumatoid factor of multiple sites without organ or systems involvement

== ENCOUNTER → 2020-08-05 | Outpatient (CLI) | payer MEDICARE ==
--- NOTE | 2020-08-05 10:34 | REP ---
INDICATION: M54.2 NECK PAIN. COMPARISON: None. TECHNIQUE: Eight views. FINDINGS: Lateral views done in flexion, extension, and neutral position demonstrate preserved vertebral body heights. Alignment is normal. No subluxation or instability is seen. There is some limitation of flexion extension range of motion. There is diffuse degenerative disc disease with anterior osteophyte formation at each level from C3-4 through C6-7. There is disc space narrowing at C5-6 and C6-7. Mild discogenic spurring is seen at C7-T1 on swimmer's lateral view. The there is osteoarthritic facet hypertrophy and sclerosis bilaterally in the mid cervical spine, most pronounced at C3-4 and C4-5. Vascular calcification is noted. The patient is edentulous. Median sternotomy wires are noted. Oblique images demonstrate uncovertebral spurring producing some neural foraminal encroachment on the left at C4-5 through C7-T1 and on the right at C6-7. The aortic arch is ectatic. IMPRESSION: Degenerative spondylosis changes. Most pronounced C5-6 and C6-7. Multilevel neural foraminal encroachment. Vascular calcification and aortic arch ectasia. <Electronically signed by Marcos Dow > 08/05/20 [id number]
--- NOTE | 2020-08-05 11:45 | REP ---
INDICATION: M25.511. COMPARISON: None. TECHNIQUE: Three views FINDINGS: There is moderate osteoarthritic spurring superiorly and inferiorly at the acromioclavicular joint. AC joint is normally aligned. There is faint soft tissue calcification in the periarticular soft tissues superior and lateral to the humeral head which may reflect calcific tendinitis or bursitis. There is mild inferior acromion process spurring. The glenohumeral up articulation is normally aligned. No erosive changes seen. IMPRESSION: Soft tissue calcification in the periarticular soft tissues consistent with calcific tendinitis or bursitis. AC joint and mild glenohumeral joint osteoarthritis. No acute bony abnormality. <Electronically signed by Marcos Dow > 08/05/20 [id number]
== END ==
LOC: M CLY 09:46
PROVIDERS: ATTEND Physician Assistant
DX: M47.892 Other spondylosis, cervical region (principal); M19.011 Primary osteoarthritis, right shoulder; M54.2 Cervicalgia; M25.511 Pain in right shoulder
CPT/HCPCS: 72050; 73030; G0463

== ENCOUNTER → 2020-08-29 | Outpatient (REF) | payer MEDICARE ==
[2020-08-29 17:38] LABS: BASO % 0.3 % (0.0-1.0); EOS % 0.2 % (0.0-3.0); HEMATOCRIT 41.9 % (36.0-47.0); HEMOGLOBIN 13.5 g/dl (12.0-15.5); LYMPH # 1.1 10^3/uL (1.5-5.0); LYMPH % 12.7 % (24.0-44.0); MEAN CORPUSCULAR HEMOGLOBIN 31.5 pg (27.0-33.0); MEAN CORPUSCULAR HGB CONC 32.2 g/dl (32.0-36.5); MEAN CORPUSCULAR VOLUME 97.9 fl (80.0-96.0); MONO # 0.4 10^3/uL (0.0-0.8); MONO % 4.7 % (0.0-5.0); NEUTROPHILS # 7.2 10^3/uL (1.5-8.5); NEUTROPHILS % 81.6 % (36.0-66.0); PLATELET COUNT, AUTOMATED 130 10^3/uL (150-450); RED BLOOD COUNT 4.28 10^6/uL (4.00-5.40); WHITE BLOOD COUNT 8.8 10^3/uL (4.0-10.0)
[2020-08-29 18:58] LABS: ALBUMIN 3.7 GM/DL (3.2-5.2); BILIRUBIN,TOTAL 0.6 MG/DL (0.2-1.0); C REACTIVE PROTEIN QUANTITATIV 0.4 MG/DL (0.00-0.30); CREATININE FOR GFR 1.15 MG/DL (0.55-1.30); GLOMERULAR FILTRATION RATE 48.8 (>39); TOTAL PROTEIN 6.6 GM/DL (6.4-8.2)
[2020-08-29 19:45] LABS: ERYTHROCYTE SEDIMENTATION RATE 9 mm/hr (0-30)
== END ==
LOC: M SFHCCLAY 12:42
PROVIDERS: ATTEND Internal Medicine
DX: M05.79 Rheumatoid arthritis with rheumatoid factor of multiple sites without organ or systems involvement (principal)

== ENCOUNTER → 2020-09-05 | Outpatient (REF) | payer MEDICARE | LOC: M SFHCRHEU 13:37 | PROVIDERS: ATTEND Internal Medicine | DX: M05.79 Rheumatoid arthritis with rheumatoid factor of multiple sites without organ or systems involvement (principal) ==

== ENCOUNTER → 2020-10-02 | Outpatient (CLI) | payer MEDICARE ==
--- NOTE | 2020-10-02 12:36 | REP ---
INDICATION: NECK PAIN. Neck pain times several months now radiating to the right arm. COMPARISON: Comparison radiographs of the cervical spine are from August 05, 2020.. TECHNIQUE: Sagittal and axial T1 and T2-weighted scans are acquired in the usual fashion with and without fat saturation. Sequences include spin echo, turbo spin-echo, and STIR imaging sequences. FINDINGS: Cervical lordosis and upper thoracic kyphosis are somewhat exaggerated in this patient. Cervical vertebral body heights are preserved. Alignment is otherwise normal. There is diffuse degenerative disc disease and osteoarthritic facet hypertrophy. No subluxation is seen. The cervical cord is normal in course, caliber, and signal intensity on T1 and T2 weighted scans. Axial and sagittal images taken at the C2-3 level, show no evidence of disc protrusion or thecal sac compression. No neural foraminal narrowing. At C3-C4 there is anterior discogenic spurring. No posterior disc protrusion is seen. There is facet hypertrophy bilaterally at C3-4, left greater than right. At C4-C5, there is degenerative disc space narrowing and anterior osteophyte formation. There is mild left-sided uncovertebral spurring at C4-5. Bilateral facet hypertrophy is noted left worse than right. No central canal stenosis or focal disc protrusion is seen. At C5-C6, there is degenerative narrowing of the disc. Anterior and posterior discogenic spurring is seen. There is a central focal disc protrusion at C5-6 which fat flattens the ventral margin of cord just to the left of midline. No overall central canal stenosis is seen. There is mild bilateral uncovertebral spurring, left greater than right. At C6-C7, there is mild diffuse disc bulging. Mild bilateral uncovertebral spurring is seen. No central canal stenosis is seen. No focal disc protrusion is noted. At C7-T1, there is minimal diffuse disc bulging. Study is otherwise unremarkable. IMPRESSION: There is a small central focal disc protrusion at C5-6 with bilateral uncovertebral spurring. Moderate osteoarthritic facet disease bilaterally at multiple levels, generally worse on the left. Diffuse degenerative disc disease. <Electronically signed by Marcos Dow > 10/02/20 [id number]
== END ==
LOC: M RAD 10:59
PROVIDERS: ATTEND Physician Assistant
DX: M50.222 Other cervical disc displacement at C5-C6 level (principal); M25.78 Osteophyte, vertebrae

== ENCOUNTER → 2021-01-09 | Outpatient (REF) | payer MEDICARE ==
[2021-01-09 17:06] LABS: BASO # 0.1 10^3/uL (0.0-0.2); BASO % 0.8 % (0.0-1.0); EOS # 0.1 10^3/uL (0.0-0.5); HEMATOCRIT 45.1 % (36.0-47.0); HEMOGLOBIN 14.2 g/dl (12.0-15.5); LYMPH # 2.3 10^3/uL (1.5-5.0); MEAN CORPUSCULAR HEMOGLOBIN 30.9 pg (27.0-33.0); MEAN CORPUSCULAR HGB CONC 31.5 g/dl (32.0-36.5); MEAN CORPUSCULAR VOLUME 98.3 fl (80.0-96.0); MONO # 0.6 10^3/uL (0.0-0.8); MONO % 10.1 % (2.0-8.0); NEUTROPHILS # 3.1 10^3/uL (1.5-8.5); NEUTROPHILS % 50.6 % (36.0-66.0); PLATELET COUNT, AUTOMATED 142 10^3/uL (150-450); RED BLOOD COUNT 4.59 10^6/uL (4.00-5.40); WHITE BLOOD COUNT 6.2 10^3/uL (4.0-10.0)
[2021-01-09 22:30] LABS: ALBUMIN 3.7 GM/DL (3.2-5.2); BILIRUBIN,TOTAL 0.4 MG/DL (0.2-1.0); CALCIUM LEVEL 9.4 MG/DL (8.8-10.2); CHOLESTEROL RISK RATIO 2.796 (<5); CREATININE FOR GFR 1.12 MG/DL (0.55-1.30); GLOMERULAR FILTRATION RATE 50.4 (>39); POTASSIUM SERUM 4.6 MEQ/L (3.5-5.1); THYROID STIMULATING HORMONE 1.29 uIU/ML (0.358-3.740); TOTAL PROTEIN 7.3 GM/DL (6.4-8.2)
[2021-01-10 10:26] LABS: TOTAL 25(OH) VITAMIN D 27.1 NG/ML (30.0-100.0)
== END ==
LOC: M SFHCCAPE 09:47
PROVIDERS: ATTEND Physician Assistant
DX: E78.5 Hyperlipidemia, unspecified (principal); E03.9 Hypothyroidism, unspecified; E55.9 Vitamin D deficiency, unspecified

== ENCOUNTER → 2021-03-06 | Outpatient (REF) | payer MEDICARE ==
[2021-03-06 16:57] LABS: ALBUMIN 3.9 GM/DL (3.2-5.2); BILIRUBIN,TOTAL 0.6 MG/DL (0.2-1.0); C REACTIVE PROTEIN QUANTITATIV 0.3 MG/DL (0.00-0.30); CALCIUM LEVEL 9.5 MG/DL (8.8-10.2); CREATININE FOR GFR 1.09 MG/DL (0.55-1.30); POTASSIUM SERUM 4.8 MEQ/L (3.5-5.1); TOTAL PROTEIN 7.4 GM/DL (6.4-8.2)
== END ==
LOC: M SFHCCAPE 10:47
PROVIDERS: ATTEND Internal Medicine
DX: M05.79 Rheumatoid arthritis with rheumatoid factor of multiple sites without organ or systems involvement (principal)

== ENCOUNTER → 2021-03-12 | Outpatient (REF) | payer MEDICARE ==
[2021-03-12 17:29] LABS: BASO % 0.6 % (0.0-1.0); EOS % 0.6 % (0.0-3.0); HEMOGLOBIN 13.9 g/dl (12.0-15.5); LYMPH # 1.9 10^3/uL (1.5-5.0); LYMPH % 27.3 % (24.0-44.0); MEAN CORPUSCULAR HEMOGLOBIN 30.7 pg (27.0-33.0); MEAN CORPUSCULAR HGB CONC 31.6 g/dl (32.0-36.5); MEAN CORPUSCULAR VOLUME 97.1 fl (80.0-96.0); MONO # 0.7 10^3/uL (0.0-0.8); MONO % 10.7 % (2.0-8.0); NEUTROPHILS # 4.2 10^3/uL (1.5-8.5); NEUTROPHILS % 60.5 % (36.0-66.0); PLATELET COUNT, AUTOMATED 138 10^3/uL (150-450); RED BLOOD COUNT 4.53 10^6/uL (4.00-5.40); WHITE BLOOD COUNT 6.9 10^3/uL (4.0-10.0)
[2021-03-12 18:21] LABS: ERYTHROCYTE SEDIMENTATION RATE 16 mm/hr (0-30)
== END ==
LOC: M SFHCCAPE 10:49
PROVIDERS: ATTEND Internal Medicine
DX: M05.79 Rheumatoid arthritis with rheumatoid factor of multiple sites without organ or systems involvement (principal)

== ENCOUNTER → 2021-03-18 | Outpatient (CLI) | payer MEDICARE ==
--- NOTE | 2021-03-18 12:50 | REP ---
INDICATION: RHEUMATOID ARTHRITIS COMPARISON: 05/19/2018. TECHNIQUE: Four views bilateral wrists. FINDINGS: There is no evidence of acute fracture, dislocation, or intrinsic bone disease.There is bilateral distal radioulnar joint narrowing with slight narrowing of the radiocarpal joints. There is moderate narrowing, subchondral sclerosis and cystic change and spurring at the joint between the trapezium and base of 1st metacarpal bilaterally. The findings are essentially unchanged. IMPRESSION: No fracture or dislocation. Symmetrical bilateral degenerative changes appear essentially stable compared to the prior study. <Electronically signed by Varinder Alexis > 03/18/21 [id number]
--- NOTE | 2021-03-18 12:56 | REP ---
INDICATION: RHEUMATOID ARTHRITIS. COMPARISON: None. TECHNIQUE: Eight views, four views of each ankle. Bilateral ankle series. FINDINGS: Overall mineralization pattern is normal. Ankle mortise is intact. There are accessory ossicles adjacent to the medial and lateral malleolus of the right ankle. Medial malleolar spurring. There are plantar and Achilles calcaneal spurs in the right calcaneus. There is some mild midfoot osteoarthritic spurring. Joint spaces are preserved. Left ankle views demonstrate medial malleolar spurring as well. Achilles and plantar calcaneal spurring are noted on the left calcaneus. Mild left-sided midfoot spurring is noted as well. IMPRESSION: Joint spaces are preserved. Bilateral heel spurs and midfoot osteoarthritis. Medial malleolar spurring bilaterally. There is a small accessory ossicle adjacent to the right lateral malleolus. <Electronically signed by Marcos Dow > 03/18/21 [id number]
--- NOTE | 2021-03-18 12:59 | REP ---
INDICATION: RHEUMATOID ARTHRITIS COMPARISON: 05/19/2018. TECHNIQUE: Four views bilateral hands. FINDINGS: There is no evidence of acute fracture, dislocation, or intrinsic bone disease.There is moderate bilateral symmetrical narrowing of the joint between the trapezium and base of 1st metacarpal with associated subchondral sclerosis and cystic change as well as spurring. There is mild to moderate spurring at the base of the right 1st and 2nd, as well as bilateral 5th distal phalanges unchanged. There is mild stable spurring at the base of the left 2nd distal phalanx. There is moderate narrowing of the 2nd and 3rd distal interphalangeal joints and mild narrowing of the 4th distal interphalangeal joint of the right hand, unchanged. IMPRESSION: Stable degenerative changes bilaterally as discussed above. <Electronically signed by Varinder Alexis > 03/18/21 [id number]
--- NOTE | 2021-03-18 13:06 | REP ---
INDICATION: RHEUMATOID ARTHRITIS COMPARISON: None. TECHNIQUE: Four views of bilateral feet. FINDINGS: There is no evidence of acute fracture, dislocation, or intrinsic bone disease. A smoothly marginated ossific density distal to the right lateral malleolus probably represents an old fracture. There is mild spurring of the right medial and lateral malleoli. There is mild narrowing and subchondral sclerosis at the right talonavicular joint. There is mild posterior and inferior right calcaneal spurring. There is mild dorsal spurring of the right cuneiform bones. There is moderate right hallux valgus deformity with mild narrowing and subchondral sclerosis of the 1st metatarsophalangeal joint. There is mild diffuse narrowing of right interphalangeal joints. On the left there is mild posterior and inferior calcaneal spurring. There is mild dorsal navicular spurring. There is mild narrowing and subchondral sclerosis at the talonavicular joint. There is mild narrowing and subchondral sclerosis at the 1st metatarsophalangeal joint. There is mild hallux valgus deformity. There is mild diffuse narrowing of interphalangeal joints. IMPRESSION: No fracture or dislocation. Bilateral degenerative changes as discussed above. <Electronically signed by Varinder Alexis > 03/18/21 [id number]
== END ==
LOC: M CLY 11:48
PROVIDERS: ATTEND Internal Medicine
DX: M05.79 Rheumatoid arthritis with rheumatoid factor of multiple sites without organ or systems involvement (principal); M77.31 Calcaneal spur, right foot; M77.32 Calcaneal spur, left foot

== ENCOUNTER → 2021-04-15 | Outpatient (CLI) | payer MEDICARE ==
--- NOTE | 2021-04-15 14:20 | DEXAMM ---
INDICATION: Z78.0 POSTMENOPAUSAL. COMPARISON: 06/08/2018. TECHNIQUE: Bone density was measured using dual-energy x-ray absorptiometry (DEXA). FINDINGS: AP SPINE L1-L4 BMD 1.674 g/cm2 Young Adult T-Score 3.9 Age Matched Z-Score 5.7. LT FEMUR, TOTAL BMD 1.097 g/cm2 Young Adult T-Score 0.7 Age Matched Z-Score 2.5. LT NECK BMD 1.052 g/cm2 Young Adult T-Score 0.1 Age Matched Z-Score 2.1. RT FEMUR, TOTAL BMD 1.060 g/cm2 Young Adult T-Score 0.4 Age Matched Z-Score 2.2. RT NECK BMD 1.058 g/cm2 Young Adult T-Score 0.1 Age Matched Z-Score 2.1. IMPRESSION: There is normal bone density of the spine. There is normal bone density of the left hip. There is normal bone density of the right hip. The density of the spine has increased 2.3% since the initial exam on 06/08/2018. The density of the left hip has increased 0.1% since initial exam on 06/08/2018. The density of the right hip has decreased 0.3% since the initial exam on 06/08/2018. FOLLOW-UP: Recommendation for the next bone density exam: 5 years. <Electronically signed by Varinder Alexis > 04/15/21 [id number]
== END ==
LOC: M WHC 12:56
PROVIDERS: ATTEND Internal Medicine
DX: Z78.0 Asymptomatic menopausal state (principal)

== ENCOUNTER → 2021-05-21 | Outpatient (REF) | payer MEDICARE ==
[2021-05-21 15:21] LABS: BASO % 0.3 % (0.0-1.0); EOS % 0.6 % (0.0-3.0); HEMOGLOBIN 13.8 g/dl (12.0-15.5); LYMPH # 1.8 10^3/uL (1.5-5.0); LYMPH % 26.4 % (24.0-44.0); MEAN CORPUSCULAR HEMOGLOBIN 31.5 pg (27.0-33.0); MEAN CORPUSCULAR HGB CONC 32.9 g/dl (32.0-36.5); MEAN CORPUSCULAR VOLUME 95.9 fl (80.0-96.0); MONO # 0.7 10^3/uL (0.0-0.8); MONO % 10.5 % (2.0-8.0); NEUTROPHILS # 4.2 10^3/uL (1.5-8.5); NEUTROPHILS % 61.9 % (36.0-66.0); PLATELET COUNT, AUTOMATED 121 10^3/uL (150-450); RED BLOOD COUNT 4.38 10^6/uL (4.00-5.40); WHITE BLOOD COUNT 6.7 10^3/uL (4.0-10.0)
[2021-05-21 15:49] LABS: ALBUMIN 3.5 GM/DL (3.2-5.2); BILIRUBIN,DIRECT 0.2 MG/DL (0.0-0.2); BILIRUBIN,TOTAL 0.6 MG/DL (0.2-1.0); C REACTIVE PROTEIN QUANTITATIV 0.3 MG/DL (0.00-0.30); CREATININE FOR GFR 0.97 MG/DL (0.55-1.30); GLOMERULAR FILTRATION RATE 59.4 (>39); POTASSIUM SERUM 4.9 MEQ/L (3.5-5.1); TOTAL PROTEIN 7.5 GM/DL (6.4-8.2)
[2021-05-21 16:03] LABS: ERYTHROCYTE SEDIMENTATION RATE 7 mm/hr (0-30)
== END ==
LOC: M SFHCCAPE 10:48
PROVIDERS: ATTEND Internal Medicine
DX: M05.79 Rheumatoid arthritis with rheumatoid factor of multiple sites without organ or systems involvement (principal)

== ENCOUNTER → 2021-08-01 | Outpatient (REF) | payer MEDICARE ==
[2021-08-01 16:05] LABS: BASO % 0.4 % (0.0-1.0); EOS # 0.1 10^3/uL (0.0-0.5); EOS % 0.9 % (0.0-3.0); HEMATOCRIT 43.5 % (36.0-47.0); HEMOGLOBIN 13.8 g/dl (12.0-15.5); LYMPH # 1.9 10^3/uL (1.5-5.0); LYMPH % 27.2 % (24.0-44.0); MEAN CORPUSCULAR HEMOGLOBIN 30.9 pg (27.0-33.0); MEAN CORPUSCULAR HGB CONC 31.7 g/dl (32.0-36.5); MEAN CORPUSCULAR VOLUME 97.5 fl (80.0-96.0); MONO # 0.9 10^3/uL (0.0-0.8); MONO % 12.5 % (2.0-8.0); NEUTROPHILS # 4.1 10^3/uL (1.5-8.5); NEUTROPHILS % 58.7 % (36.0-66.0); PLATELET COUNT, AUTOMATED 118 10^3/uL (150-450); RED BLOOD COUNT 4.46 10^6/uL (4.00-5.40)
[2021-08-01 16:29] LABS: ALBUMIN 3.6 GM/DL (3.2-5.2); BILIRUBIN,DIRECT 0.1 MG/DL (0.0-0.2); BILIRUBIN,TOTAL 0.5 MG/DL (0.2-1.0); C REACTIVE PROTEIN QUANTITATIV 0.43 MG/DL (0.00-0.30); CALCIUM LEVEL 9.4 MG/DL (8.8-10.2); CREATININE FOR GFR 1.05 MG/DL (0.55-1.30); GLOMERULAR FILTRATION RATE 54.1 (>39); POTASSIUM SERUM 4.6 MEQ/L (3.5-5.1)
[2021-08-01 16:35] LABS: ERYTHROCYTE SEDIMENTATION RATE 9 mm/hr (0-30)
== END ==
LOC: M SFHCCLAY 12:35
PROVIDERS: ATTEND Internal Medicine
DX: M05.79 Rheumatoid arthritis with rheumatoid factor of multiple sites without organ or systems involvement (principal)

== ENCOUNTER → 2021-09-30 | Outpatient (REF) | payer MEDICARE ==
[~2021-09-30] MED LIST changes: +CARB1DRO11 OU; -THERSOL2 OU
[2021-09-30 18:01] LABS: ALBUMIN 3.7 GM/DL (3.2-5.2); BILIRUBIN,DIRECT 0.2 MG/DL (0.0-0.2); BILIRUBIN,TOTAL 0.5 MG/DL (0.2-1.0); C REACTIVE PROTEIN QUANTITATIV 0.92 MG/DL (0.00-0.30); CREATININE FOR GFR 0.97 MG/DL (0.55-1.30); GLOMERULAR FILTRATION RATE 59.3 (>39); POTASSIUM SERUM 4.6 MEQ/L (3.5-5.1); TOTAL PROTEIN 7.6 GM/DL (6.4-8.2)
[2021-09-30 18:06] LABS: BASO % 0.4 % (0.0-1.0); EOS % 0.1 % (0.0-3.0); HEMATOCRIT 43.3 % (36.0-47.0); HEMOGLOBIN 13.8 g/dl (12.0-15.5); LYMPH # 2.4 10^3/uL (1.5-5.0); LYMPH % 31.5 % (24.0-44.0); MEAN CORPUSCULAR HEMOGLOBIN 30.6 pg (27.0-33.0); MEAN CORPUSCULAR HGB CONC 31.9 g/dl (32.0-36.5); MONO # 0.8 10^3/uL (0.0-0.8); MONO % 10.8 % (2.0-8.0); NEUTROPHILS # 4.3 10^3/uL (1.5-8.5); NEUTROPHILS % 56.9 % (36.0-66.0); PLATELET COUNT, AUTOMATED 116 10^3/uL (150-450); RED BLOOD COUNT 4.51 10^6/uL (4.00-5.40); WHITE BLOOD COUNT 7.5 10^3/uL (4.0-10.0)
[2021-09-30 18:55] LABS: ERYTHROCYTE SEDIMENTATION RATE 16 mm/hr (0-30)
== END ==
LOC: M SFHCRHEU 13:07
PROVIDERS: ATTEND Internal Medicine
DX: M05.79 Rheumatoid arthritis with rheumatoid factor of multiple sites without organ or systems involvement (principal)
CPT/HCPCS: 80048; 80076; 85025; 85652; 86140; G0463

== ENCOUNTER → 2021-12-23 | Outpatient (REF) | payer MEDICARE ==
[2021-12-23 16:30] LABS: BASO % 0.3 % (0.0-1.0); EOS % 0.1 % (0.0-3.0); HEMATOCRIT 41.6 % (36.0-47.0); HEMOGLOBIN 13.5 g/dl (12.0-15.5); LYMPH # 1.9 10^3/uL (1.5-5.0); LYMPH % 27.1 % (24.0-44.0); MEAN CORPUSCULAR HGB CONC 32.5 g/dl (32.0-36.5); MEAN CORPUSCULAR VOLUME 95.4 fl (80.0-96.0); MONO # 0.7 10^3/uL (0.0-0.8); MONO % 9.9 % (2.0-8.0); NEUTROPHILS # 4.4 10^3/uL (1.5-8.5); NEUTROPHILS % 62.5 % (36.0-66.0); PLATELET COUNT, AUTOMATED 127 10^3/uL (150-450); RED BLOOD COUNT 4.36 10^6/uL (4.00-5.40)
[2021-12-23 16:34] LABS: FREE T4 1.36 NG/DL (0.76-1.46); THYROID STIMULATING HORMONE 1.28 uIU/ML (0.358-3.740)
[2021-12-23 16:37] LABS: ALBUMIN 3.7 GM/DL (3.2-5.2); BILIRUBIN,DIRECT 0.1 MG/DL (0.0-0.2); BILIRUBIN,TOTAL 0.5 MG/DL (0.2-1.0); C REACTIVE PROTEIN QUANTITATIV 0.3 MG/DL (0.00-0.30); CREATININE FOR GFR 1.12 MG/DL (0.55-1.30); GLOMERULAR FILTRATION RATE 50.2 (>39); POTASSIUM SERUM 4.6 MEQ/L (3.5-5.1); TOTAL PROTEIN 7.3 GM/DL (6.4-8.2)
[2021-12-23 17:06] LABS: ERYTHROCYTE SEDIMENTATION RATE 10 mm/hr (0-30)
== END ==
LOC: M SFHCRHEU 09:48
PROVIDERS: ATTEND Internal Medicine
DX: M05.79 Rheumatoid arthritis with rheumatoid factor of multiple sites without organ or systems involvement (principal); E03.9 Hypothyroidism, unspecified

== ENCOUNTER → 2022-02-18 | Outpatient (REF) | payer MEDICARE | LOC: M SFHCCAPE 11:56 | PROVIDERS: ATTEND Physician Assistant | DX: R19.7 Diarrhea, unspecified (principal); K21.9 Gastro-esophageal reflux disease without esophagitis ==

== ENCOUNTER → 2022-02-26 | Outpatient (REF) | payer MEDICARE ==
[2022-02-26 16:17] LABS: BASO % 0.4 % (0.0-1.0); EOS % 0.3 % (0.0-3.0); HEMATOCRIT 43.7 % (36.0-47.0); LYMPH # 1.8 10^3/uL (1.5-5.0); LYMPH % 24.5 % (24.0-44.0); MEAN CORPUSCULAR HEMOGLOBIN 30.8 pg (27.0-33.0); MONO # 0.8 10^3/uL (0.0-0.8); NEUTROPHILS # 4.7 10^3/uL (1.5-8.5); NEUTROPHILS % 63.1 % (36.0-66.0); PLATELET COUNT, AUTOMATED 133 10^3/uL (150-450); RED BLOOD COUNT 4.55 10^6/uL (4.00-5.40); WHITE BLOOD COUNT 7.4 10^3/uL (4.0-10.0)
[2022-02-26 16:47] LABS: ALBUMIN 3.6 GM/DL (3.2-5.2); BILIRUBIN,DIRECT 0.2 MG/DL (0.0-0.2); BILIRUBIN,TOTAL 0.6 MG/DL (0.2-1.0); CALCIUM LEVEL 9.8 MG/DL (8.8-10.2); CREATININE FOR GFR 1.19 MG/DL (0.55-1.30); GLOMERULAR FILTRATION RATE 46.8 (>39); POTASSIUM SERUM 4.7 MEQ/L (3.5-5.1); THYROID STIMULATING HORMONE 1.35 uIU/ML (0.358-3.740); TOTAL PROTEIN 7.3 GM/DL (6.4-8.2)
== END ==
LOC: M SFHCCAPE 10:53
PROVIDERS: ATTEND Internal Medicine
DX: M05.79 Rheumatoid arthritis with rheumatoid factor of multiple sites without organ or systems involvement (principal); R19.7 Diarrhea, unspecified; K21.9 Gastro-esophageal reflux disease without esophagitis

== ENCOUNTER → 2022-04-29 | Outpatient (REF) | payer MEDICARE ==
[2022-04-29 17:16] LABS: BASO % 0.5 % (0.0-1.0); EOS % 0.4 % (0.0-3.0); HEMATOCRIT 42.3 % (36.0-47.0); HEMOGLOBIN 13.5 g/dl (12.0-15.5); LYMPH # 2.1 10^3/uL (1.5-5.0); LYMPH % 28.2 % (24.0-44.0); MEAN CORPUSCULAR HEMOGLOBIN 30.3 pg (27.0-33.0); MEAN CORPUSCULAR HGB CONC 31.9 g/dl (32.0-36.5); MEAN CORPUSCULAR VOLUME 95.1 fl (80.0-96.0); MONO # 0.8 10^3/uL (0.0-0.8); MONO % 10.6 % (2.0-8.0); NEUTROPHILS # 4.5 10^3/uL (1.5-8.5); NEUTROPHILS % 59.9 % (36.0-66.0); PLATELET COUNT, AUTOMATED 139 10^3/uL (150-450); RED BLOOD COUNT 4.45 10^6/uL (4.00-5.40); WHITE BLOOD COUNT 7.5 10^3/uL (4.0-10.0)
[2022-04-29 17:50] LABS: ERYTHROCYTE SEDIMENTATION RATE 14 mm/hr (0-30)
[2022-04-29 19:24] LABS: ALBUMIN 3.5 GM/DL (3.2-5.2); BILIRUBIN,DIRECT 0.2 MG/DL (0.0-0.2); BILIRUBIN,TOTAL 0.5 MG/DL (0.2-1.0); C REACTIVE PROTEIN QUANTITATIV 0.53 MG/DL (0.00-0.30); CALCIUM LEVEL 9.1 MG/DL (8.8-10.2); CREATININE FOR GFR 1.12 MG/DL (0.55-1.30); GLOMERULAR FILTRATION RATE 50.2 (>39); POTASSIUM SERUM 4.5 MEQ/L (3.5-5.1); TOTAL PROTEIN 7.2 GM/DL (6.4-8.2)
== END ==
LOC: M SFHCCAPE 11:30
PROVIDERS: ATTEND Internal Medicine
DX: M05.79 Rheumatoid arthritis with rheumatoid factor of multiple sites without organ or systems involvement (principal)

== ENCOUNTER → 2022-09-14 | Outpatient (REF) | payer MEDICARE ==
[2022-09-14 17:14] LABS: BASO % 0.3 % (0.0-1.0); EOS % 0.1 % (0.0-3.0); HEMATOCRIT 43.2 % (36.0-47.0); HEMOGLOBIN 13.6 g/dl (12.0-15.5); LYMPH # 2.3 10^3/uL (1.5-5.0); LYMPH % 31.4 % (24.0-44.0); MEAN CORPUSCULAR HEMOGLOBIN 29.4 pg (27.0-33.0); MEAN CORPUSCULAR HGB CONC 31.5 g/dl (32.0-36.5); MEAN CORPUSCULAR VOLUME 93.3 fl (80.0-96.0); MONO # 0.7 10^3/uL (0.0-0.8); MONO % 9.1 % (2.0-8.0); NEUTROPHILS # 4.3 10^3/uL (1.5-8.5); NEUTROPHILS % 58.4 % (36.0-66.0); PLATELET COUNT, AUTOMATED 167 10^3/uL (150-450); RED BLOOD COUNT 4.63 10^6/uL (4.00-5.40); WHITE BLOOD COUNT 7.4 10^3/uL (4.0-10.0)
[2022-09-14 17:31] LABS: ALBUMIN 3.7 G/DL (3.2-5.2); BILIRUBIN,DIRECT 0.2 MG/DL (<0.4); BILIRUBIN,TOTAL 0.6 MG/DL (0.3-1.2); CALCIUM LEVEL 9.8 MG/DL (8.3-10.6); CREATININE FOR GFR 1.21 MG/DL (0.55-1.30); GLOMERULAR FILTRATION RATE 45.8 (>39); POTASSIUM SERUM 5.3 MMOL/L (3.5-5.1); TOTAL PROTEIN 7.2 G/DL (5.7-8.2)
[2022-09-14 17:32] LABS: C REACTIVE PROTEIN QUANTITATIV 0.9 MG/DL (<1.0)
[2022-09-14 18:15] LABS: ERYTHROCYTE SEDIMENTATION RATE 16 mm/hr (0-30)
== END ==
LOC: M SFHCCAPE 11:30
PROVIDERS: ATTEND Internal Medicine
DX: M05.79 Rheumatoid arthritis with rheumatoid factor of multiple sites without organ or systems involvement (principal)

== ENCOUNTER → 2022-10-28 | Outpatient (REF) | payer MEDICARE ==
[~2022-10-28] MED LIST changes: +NYST-38 PO; -NYST50SS PO
[2022-10-28 17:24] LABS: BASO % 0.5 % (0.0-1.0); EOS % 0.1 % (0.0-3.0); HEMATOCRIT 42.7 % (36.0-47.0); HEMOGLOBIN 13.4 g/dl (12.0-15.5); LYMPH % 23.6 % (24.0-44.0); MEAN CORPUSCULAR HEMOGLOBIN 29.3 pg (27.0-33.0); MEAN CORPUSCULAR HGB CONC 31.4 g/dl (32.0-36.5); MEAN CORPUSCULAR VOLUME 93.2 fl (80.0-96.0); MONO # 0.8 10^3/uL (0.0-0.8); MONO % 9.7 % (2.0-8.0); NEUTROPHILS # 5.4 10^3/uL (1.5-8.5); NEUTROPHILS % 65.6 % (36.0-66.0); PLATELET COUNT, AUTOMATED 132 10^3/uL (150-450); RED BLOOD COUNT 4.58 10^6/uL (4.00-5.40); WHITE BLOOD COUNT 8.3 10^3/uL (4.0-10.0)
[2022-10-28 17:29] LABS: C REACTIVE PROTEIN QUANTITATIV 1.7 MG/DL (<1.0)
[2022-10-28 17:31] LABS: ALBUMIN 3.5 G/DL (3.2-5.2); BILIRUBIN,DIRECT 0.2 MG/DL (<0.4); BILIRUBIN,TOTAL 0.5 MG/DL (0.3-1.2); CALCIUM LEVEL 9.2 MG/DL (8.3-10.6); CHOLESTEROL RISK RATIO 3.15 (<5); CREATININE FOR GFR 1.09 MG/DL (0.55-1.30); GLOMERULAR FILTRATION RATE 51.7 (>39); HDL CHOLESTEROL 47.3 MG/DL (>40); LDL CHOLESTEROL 77.9 MG/DL (<100); POTASSIUM SERUM 4.4 MMOL/L (3.5-5.1); TOTAL PROTEIN 6.9 G/DL (5.7-8.2)
[2022-10-28 17:48] LABS: ERYTHROCYTE SEDIMENTATION RATE 27 mm/hr (0-30)
[2022-10-28 18:03] LABS: THYROID STIMULATING HORMONE 2.527 uIU/ML (0.55-4.78)
[2022-10-28 18:04] LABS: TOTAL 25(OH) VITAMIN D 44.4 NG/ML (20.0-100.0)
== END ==
LOC: M SFHCCAPE 09:50
PROVIDERS: ATTEND Internal Medicine
DX: M05.79 Rheumatoid arthritis with rheumatoid factor of multiple sites without organ or systems involvement (principal); E55.9 Vitamin D deficiency, unspecified; E03.9 Hypothyroidism, unspecified

== ENCOUNTER → 2022-12-08 | Outpatient (CLI) | payer MEDICARE ==
[~2022-12-08] MED LIST changes: +GASTROGRAFIN SOLUTION 30ML As Ordered ONE; +ISOVUE-370 76% 100ML VIAL As Ordered ONE
== END ==
LOC: M RAD 12:02
PROVIDERS: ATTEND Physician Assistant
DX: R10.32 Left lower quadrant pain (principal); R19.7 Diarrhea, unspecified
CPT/HCPCS: 74177; Q9963; Q9967